=== PATIENT | female | born 1980 | race Caucasian/White ===

== ENCOUNTER 2017-11-22 07:11 | Day surgery (SDC) | payer OTHER ==
[2017-11-22] MEDS ORDERED: Lactated Ringer's 500 ML IV ONE (07:36)
[2017-11-22 07:53] VITALS: O2SAT 100
[2017-11-22] MEDS ORDERED: Propofol 10 mg/ml Inj (20 ML) ONE (08:41)
[2017-11-22 09:02] VITALS: TEMP 98
[2017-11-22 09:30] VITALS: BP 106/72; PULSE 64; RESP 18
== END 2017-11-22 09:37 | disposition home or self-care (01) ==
LOC: H.ENDO 07:11
PROVIDERS: ATTEND Internal Medicine Gastroenterology
DX: R12 Heartburn (principal); R10.13 Epigastric pain; K31.89 Other diseases of stomach and duodenum; E03.9 Hypothyroidism, unspecified
CPT/HCPCS: 43239; 88305; J2001; J2704; J7120

== ENCOUNTER 2018-03-14 22:23 | Emergency (ER) | payer OTHER ==
[2018-03-14 23:55] LABS: BASO # 0.1 K/uL (0.0-0.2); BASO % 0.7 % (0.0-2.0); EOS # 0.2 K/uL (0.0-0.7); EOS % 1.7 % (0.0-4.0); HEMOGLOBIN 11.2 g/dL (12.0-16.0); LYMPH # 3.4 K/uL (1.0-4.3); LYMPH % 34.8 % (20.0-40.0); MEAN CELL VOLUME 71.2 fl (81.0-99.0); MEAN CORPUSCULAR HEMOGLOBIN 22.8 pg (27.0-31.0); MEAN PLATELET VOLUME 8.1 fl (7.2-11.7); MONO # 0.6 K/uL (0.0-0.8); MONO % 6.5 % (0.0-10.0); NEUT # 5.4 K/uL (1.8-7.0); NEUT % 56.3 % (50.0-75.0); RBC 4.9 Mil/uL (3.80-5.20); RED CELL DISTRIBUTION WIDTH 17.8 % (11.5-14.5); WHITE BLOOD COUNT 9.7 K/uL (4.8-10.8)
[2018-03-15 00:07] LABS: ALB/GLOB RATIO 1.2 (1.0-2.1); ALBUMIN 4.6 g/dL (3.5-5.0); ALT/SGPT 24 U/L (9-52); AST/SGOT 29 U/L (14-36); BLOOD UREA NITROGEN 9 mg/dl (7-17); CALCIUM 9.4 mg/dL (8.4-10.2); GFR NON-AFRICAN AMERICAN > 60
[2018-03-15] MEDS ORDERED: Potassium Chloride 20 mEq ER Tab PO ONE ×2 (00:56→01:47)
[2018-03-15 01:25] VITALS: RESP 18; TEMP 98.7
[2018-03-15] MEDS ORDERED: Sodium Chloride 0.9% 1,000 ML IV STA (01:42)
[2018-03-15 01:58] LABS: OPIATES, UR NEGATIVE (NEGATIVE)
[2018-03-15 02:09] LABS: BARBITURATES, UR NEGATIVE (NEGATIVE); BENZODIAZEPINES, UR NEGATIVE (NEGATIVE); PHENCYCLIDINE, UR NEGATIVE (NEGATIVE)
--- NOTE | 2018-03-15 02:15 | ED PDOC ---
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 As per , patient began complaining of headache at 9:00 this morning; took Excedrin and Ibuprofen with little improvement. states patient left work around 18:00 and still had headache and then noticed bilateral legs to feel numb. states around 20:30 patient was going to take her medi cations for H. Pylori but wanted crackers with it since she didn't eat much during the day; states as he was about to give her crackers and medications patient stated her jaw and tongue felt heavy. states patient then passed out for approximately 5 minutes, and when she woke up she would not talk or move. Patient awake at present, staring at provider, answers yes and no questions, reports pain to jaw currently when trying to open to speak. Past Medical History Reviewed: Historical Data, Nursing Documentation, Vital Signs Vital Signs: Last Vital Signs Temp 98.7 F 03/14/18 22:32 Pulse 72 03/14/18 23:48 Resp 18 03/14/18 23:48 BP 138/80 03/14/18 23:48 Pulse Ox 100 03/14/18 23:48 - Medical History PMH: Hypothyroidism Denies: Chronic Kidney Disease - Surgical History Surgical History: No Surg Hx - Family History Family History: States: Unknown Family Hx - Living Arrangements Living Arrangements: With Family - Social History Ex-Smoker (has not smoked in the last 12 months): No - Immunization History Hx Tetanus Toxoid Vaccination: No Hx Influenza Vaccination: No Hx Pneumococcal Vaccination: No - Home Medications Home Medications: Ambulatory Orders Medication Instructions Recorded Levothyroxine [Synthroid] 25 mcg PO DAILY 11/22/17 - Allergies Allergies/Adverse Reactions: Allergies Allergy/AdvReac Type Severity Reaction Status Date / Time No Known Allergies Allergy Unverified 03/26/15 21:39 Review of Systems ROS Statement: Except As Marked, All Systems Reviewed And Found Negative Neurological: Positive for: Weakness Physical Exam - Reviewed Nursing Documentation Reviewed: Yes Vital Signs Reviewed: Yes - Physical Exam Appears: Positive for: Well, Non-toxic, No Acute Distress Head Exam: Positive for: ATRAUMATIC, NORMAL INSPECTION, NORMOCEPHALIC Skin: Positive for: Normal Color Eye Exam: Positive for: Normal appearance ENT: Positive for: Normal ENT Inspection Cardiovascular/Chest: Positive for: Regular Rate, Rhythm Respiratory: Positive for: Normal Breath Sounds Gastrointestinal/Abdominal: Positive for: Normal Exam Extremity: Positive for: Other (patient unable to move extremities) Neurologic/Psych: Positive for: Alert, Oriented. Negative for: Motor/Sensory Deficits - Laboratory Results Result Diagrams: 03/14/18 23:25 03/14/18 23:25 - ECG ECG: Positive for: Viewed By Me (reviewed by ED attending) ECG Rhythm: Positive for: Sinus Rhythm O2 Sat by Pulse Oximetry: 100 - Progress ED Course And Treament: Patient evaluated by Dr. Giang, will obtain labs, CT head, accucheck, and give IV ativan dose CT SCAN OF THE BRAIN WITHOUT IV CONTRAST CLINICAL INDICATION: Headache and weakness. TECHNIQUE: Axial and reformatted sagittal and coronal images of the brain obtained without IV contrast administration. Normal size of the ventricles and extra-axial spaces for the patient's age. Normal white matter tracts of the supratentorial brain. Normal basal ganglia and thalami. Normal brainstem. Normal cerebellum. There is no demonstrated extra-axial, intraparenchymal, or intraventricular hemorrhage. There are no findings of an acute ischemic infarction. Normal calvarium. There is no demonstrated fracture. Normal soft tissue structures. Normal visualized paranasal sinuses. IMPRESSION: Normal unenhanced CT scan of the brain. On re-eval, patient ambulating and speaking without difficulty; states she is feeling better. Vitals stable Patient educated on findings, discharged with instructions to follow up with PMD within 2-3 days Return precautions given Disposition - Clinical Impression Clinical Impression: Syncope, Anxiety - Patient ED Disposition Is Patient to be Admitted: No Counseled Patient/Family Regarding: Studies Performed, Diagnosis, Need For Followup - Disposition Referrals: [facility] [place] [facility] [Outside] Disposition: Routine/Home Disposition Time: 03:25 Condition: IMPROVED Instructions: Syncope (Fainting) Forms: [employer] ([place]) Print Language: SYRI[place]
[2018-03-15 03:52] VITALS: BP 113/84; PULSE 76; O2SAT 99
--- NOTE | 2018-03-15 08:39 | CT ---
Date of service: 03/14/2018 PROCEDURE: CT HEAD WITHOUT CONTRAST. HISTORY: headache, weakness COMPARISON: None available. TECHNIQUE: Axial computed tomography images were obtained through the head/brain without intravenous contrast. Radiation dose: Total exam DLP = 687.38 mGy-cm. This CT exam was performed using one or more of the following dose reduction techniques: Automated exposure control, adjustment of the mA and/or kV according to patient size, and/or use of iterative reconstruction technique. FINDINGS: HEMORRHAGE: No intracranial hemorrhage. BRAIN: No mass effect or edema. No atrophy or chronic microvascular ischemic changes. VENTRICLES: Unremarkable. No hydrocephalus. CALVARIUM: Unremarkable. PARANASAL SINUSES: Unremarkable as visualized. No significant inflammatory changes. MASTOID AIR CELLS: Unremarkable as visualized. No inflammatory changes. OTHER FINDINGS: None. IMPRESSION: Normal CT of the Head. No intracranial mass, hemorrhage or evidence of acute infarct. The preliminary findings for this examination were reported by [facility] at 12:39 a.m. on 03/15/2018. There is concurrence of this report with the preliminary findings.
--- NOTE | 2018-03-15 08:55 | CARD ---
APPROVED REPORT Date of service: 03/14/2018 EKG Measurement Heart [id number] <Conclusion> Normal sinus rhythm Normal ECG
== END 2018-03-15 03:51 | disposition home or self-care (01) ==
LOC: H.ER 22:23
DX: R55 Syncope and collapse (principal); F41.9 Anxiety disorder, unspecified
CPT/HCPCS: 70450; 80053; 80324; 80345; 80346; 80349; 80353; 80358; 80361; 81025; 82948; 83992; 84439; 84443; 84481; 85025; 93005; 99285; J2060; J7040